=== PATIENT | female | born 1940 | race Caucasian/White ===

== ENCOUNTER → 2017-11-21 | Day surgery (SDC) | payer MEDICARE, OTHER ==
[~2017-11-21] MED LIST: ALDACTONE25 MG PO; ALLEGRA ALLERG180 MG PO; ALLERGY SYRING1 EAC1 MC; BIOTIN5000 MCG PO; CLEOCIN HCL300 MG PO; COZAAR 50 MG TA50 M2 PO; CRANBERRY200 MG PO; FLONASE 0.05%50 MCG NASAL; HAIR, SKIN & N1 EAC1 PO; KERATIN PO; LEVOTHYROXIN0.088 MG PO; MEDROLDOSEPACK PO; NORVASC5 M1 PO; OMEPRAZOLE20 M2 PO; PROBIOTIC1 EAC1 PO; SUPER B COMPLE150 MG PO; SYNTHROID100 MC1 PO; TRIAMCINOLONE 080 G3 TP; TYLENOL325 MG PO; VITAMIN D35000 UNIT PO; XANAX 0.5 MG0.5 MG PO; ZOLOFT50 MG PO
[2017-11-21 07:31] LABS: HEMATOCRIT 42.2 % (37.0-47.0); MCH 30.5 pg (26.0-34.0); MCHC 33.2 g/dL (28.0-37.0); MCV 91.7 fL (80.0-100.0); RBC 4.6 mil/uL (4.20-5.00); RDW-CV 13.5 % (10.5-14.5); WBC 10.4 thou/uL (4.0-11.0)
[2017-11-21 07:34] LABS: CALCIUM 9.1 mg/dL (8.5-10.1); CREATININE 0.8 mg/dL (0.6-1.3); POTASSIUM 3.9 mmol/L (3.5-5.1)
--- NOTE | 2017-11-21 14:01 | EKG ---
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
--- NOTE | 2017-12-10 09:18 | OP ---
[facility] [address] [place] [address] OPERATIVE REPORT Name: DEVIN FLORES Room: [facility]#: [id number] Admission: 11/21/17 Attend Phys: Onesimo Peralta Discharge: Date of : 44 Report #: [id number] THIS REPORT FOR: //name// CC: Onesimo Carmona DATE OF SERVICE: 11/21/2017 PREOPERATIVE DIAGNOSIS: Benign left shoulder mass, 2.5 cm. POSTOPERATIVE DIAGNOSIS: Benign left shoulder mass, 2.5 cm. PROCEDURE: Excision of benign ____ mass, 2.5 cm. SURGEON: Onesimo Peralta MD ANESTHESIA: Local monitored. ESTIMATED BLOOD LOSS: Minimal. SPECIMEN: Left shoulder mass. DESCRIPTION OF PROCEDURE: After informed consent was obtained, the patient was brought to the operating room and placed supine. SCDs were placed and working, preoperative antibiotics were administered, local monitored anesthesia was induced. The left shoulder was prepped and draped in the usual sterile fashion. A 2.5 cm incision was made over the lesion after it was anesthetized with 10 mL of 1% lidocaine plain. Dissection was made down through the subcutaneous tissue with cautery. The mass was encountered. The mass was dissected around and excised. The skin was then reapproximated with a 3-0 Vicryl suture for the deep layer and 4-0 Monocryl in running subcuticular fashion for the skin. Incision was dressed with Steri-Strips and gauze. Sterile dressings were applied. COMPLICATIONS: None. DISPOSITION: The patient was taken to recovery in satisfactory condition. <ELECTRONICALLY SIGNED> By: Onesimo Peralta MD 12/10/17 0918 0955 1005Onesimo Peralta MD /nt
--- NOTE | 2017-12-26 08:08 | PATH ---
[address] [address] PATHOLOGY RPT PROCEDURE Name: PARRIS HYDE Room: [facility].#: [id number] Admission: 11/21/17 Date of : 44 Discharge: Report #: [id number] Path Case #: [id number] [facility] Accession Number: [id number] . 01 Material submitted: . LIPOMA, LEFT SHOULDER . 01 Clinical history: . Mass left shoulder/upper back . 02 Diagnosis: Mass left shoulder/upper back: - Lipoma. (DENYS:db; 11/24/2017) LBQ/11/24/2017 . 02 Electronically signed: . Navin Hall MD, Pathologist NPI- [id number] . 01 Gross description: . The specimen is received in formalin, labeled "Parris Hyde, shoulder lipoma" and consists of a partially encapsulated segment of yellow-orange adipose tissue measuring 2.9 x 1.9 x 1.1 cm. Sectioning reveals homogeneous yellow cut surfaces and no gross lesions. Childcare Administrator sections are submitted in A1. (SDY; 11/21/2017) SYU/SYU . 02 Pathologist provided ICD-10: D17.79 . 02 CPT . 132172 Performed at: [address], [place], [place] [id number] MD Chandler Olivia MD Phone: [phone] Performed at: [address] [address] [address], [place], [place] [id number] MD Navin Hall MD Phone: [phone]
== END | disposition home or self-care (01) ==
LOC: M.SUR 07:03
PROVIDERS: Surgery
DX: D17.22 Benign lipomatous neoplasm of skin and subcutaneous tissue of left arm (principal); I10 Essential (primary) hypertension; F32.9 Major depressive disorder, single episode, unspecified; F41.9 Anxiety disorder, unspecified; Z88.2 Allergy status to sulfonamides; Z79.899 Other long term (current) drug therapy; Z98.890 Other specified postprocedural states

== ENCOUNTER → 2020-07-27 | Outpatient (CLI) | payer MEDICARE, OTHER ==
--- NOTE | 2020-07-27 14:11 | EKG ---
[place] [address] ELECTROCARDIOGRAM REPORT Name: DEVIN FLORES Room: [facility]#: [id number] Admission: 07/27/20 Attend Phys: BLAZE Cyr Discharge: Date of : 44 Date of Service: 07/27/20 1206 Report #: [id number] THIS REPORT FOR: //name// [facility] Test Date: 2020-07-27 Test Time: 12:06:24 Pat Name: DEVIN FLORES Department: Room: Gender: F Can Dragger: : 1940 Requested By: Cristina Johnson Order Number: [id number] Reading MD: Renny Cisneros Measurements Intervals Dailey Rate: 69 P: 38 NE: 173 QRS: -14 QRSD: 92 T: 4 QT: 416 QTc: 446 Interpretive Statements Sinus rhythm RSR' in V1 or V2, right VCD Compared to ECG 11/21/2017 07:28:29 RSR' in V1 or V2 now present Electronically Signed On 07-27-2020 14:11:25 WHEAT INSPECTOR by Renny Cisneros [email or web address] <ELECTRONICALLY SIGNED> By: Renny Cisneros MD, FACC 07/27/20 1411 1206 1206 Renny Cisneros MD, [facility] /EPI
== END ==
LOC: M.CRD 11:30
PROVIDERS: ATTEND Nurse Practitioner Family
DX: I45.10 Unspecified right bundle-branch block (principal); Z79.899 Other long term (current) drug therapy